=== PATIENT | female | born 1950 | race Caucasian/White ===

== ENCOUNTER 2022-09-26 11:09 | Emergency (ER) | payer MEDICARE, BC, SELFPAY ==
[2022-09-26] VITALS (101 sets, daily range): BP systolic 104–205; BP diastolic 56–101; PULSE 61–78; RESP 7–41; O2SAT 92–100
--- NOTE | 2022-09-26 11:30 | RT.EKG_ITS ---
APPROVED REPORT Exam: Resting ECG Reason for Exam: upper abdominal pain, HTN Patient Location: E HR:71 bpm ECG Measurements Heart Rate 71 AXIS UT 155 P 59 QRSd 98 QRS 29 QT 455 T 61 QTc 496 Conclusion Sinus rhythm...normal P axis, V-rate 60- 99 Probable left atrial enlargement...P >50mS, <-0.10mV V1. Sinus. Normal axis. No STEMI. I have reviewed and interpreted ECG and agree with software generated interpretation.
--- NOTE | 2022-09-26 11:30 | DI.RAD_ITS ---
Exam(s) XR CHEST 2V PA LATERAL EXAM: XR CHEST 2V PA LATERAL CLINICAL HISTORY: upper abdominal pain TECHNIQUE: 2D digital imaging was performed. COMPARISON: CT CT ABDOMEN PELVIS W from 09/26/2022 FINDINGS: HEART: Normal size. Aorta: Not dilated. Calcification at arch. PULMONARY VASCULATURE: Normal. LUNGS: Clear. PLEURAL SPACE: No pleural effusion or pneumothorax. BONE:Scoliosis. IMPRESSION: No acute abnormality. DATA REPOSITORY: RADIATION DOSE DELIVERED:
--- NOTE | 2022-09-26 11:30 | DI.CT_ITS ---
Exam(s) CT ABDOMEN PELVIS W EXAM: CT ABDOMEN PELVIS W CLINICAL HISTORY: LUQ pain. TECHNIQUE: Imaging Protocol: Axial computed tomography images with coronal and sagittal reformatted images were created and reviewed CONTRAST MATERIAL: Intravenous: Omnipaque 350 Contrast volume:100 ml Oral: / no COMPARISON: No exams were available for comparison FINDINGS: ABDOMEN: Lung Bases: Linear scarring or atelectasis. Liver: Normal density. No measurable mass. Gallbladder and biliary tract: Gallbladder distended and shows wall thickening. Question of stones i n gallbladder neck or cystic duct. No intra or extrahepatic biliary dilatation. Pancreas: Normal density, no abnormal calcifications or inflammatory process. Pancreatic ductal dil atation. Spleen: Normal. Kidneys: Normal size, contour and axis. No radiodense stones or obstructive uropathy. No suspicious m asses seen. Adrenal glands: No masses seen. Abdominal Aorta: Abdominal portion non-dilated. Soft tissues: Unremarkable. PELVIS: Bladder: No gross wall thickening. No calculi.No focal mass. Bowel: No obstruction. No bowel wall thickening. Sigmoid diverticulosis. No evidence of diverticu litis. Peritoneal cavity: No ascites, collection or mesenteric inflammatory response. Bones: Mild degenerative changes. Mild scoliosis. Reproductive organs: Status post hysterectomy. Lymph nodes: Unremarkable. Impression: Findings suspicious for acute cholecystitis. Stones are questioned in the gallbladder neck versus cys tic duct. Findings called to Yenny Mendez of the emergency department. RADIATION DOSE DELIVERED: 831.53mGy.cm Total DLP DATA REPOSITORY: All CT scans at this facility are submitted to the National Radiology Data Registry (NRDR) Dose Index Registry (DIR) with the [employer] (ACR). RADIATION OPTIMIZATION: All CT scans at this facility use at least one of these dose optimization te chniques: automated exposure control; mA and/or kV adjustment per patient size (includes targeted exa ms where dose is matched to clinical indication); or iterative reconstruction.
--- NOTE | 2022-09-26 11:46 | ED.GENADUL_ITS ---
Discharge Plan Disposition Patient Disposition: Home Condition: Stable Discharge Details Clinical Impression: Abdominal discomfort, Thickening of wall of gallbladder, Elevated troponin, Hematuria Primary Care Provider: None,None ED Provider: Yenny Mendez Home Meds and New Rx's Prescriptions: New ondansetron 4 mg tablet,disintegrating 4 mg PO DAILY PRN4 Days Qty: 10 0RF Continued lisinopril 10 mg Tablet 10 mg PO DAILY Discharge Instructions Instructions: Ondansetron (By mouth), Abdominal Pain (ED), High Troponin Levels (ED) Additional Instructions: Your imaging was concerning for enlarged gallbladder and thickened gallbladder wall. However, your labs and history and exam do not suggest an acute issue with your gallbladder requiring any type of intervention today. Mother, I will refer you to general surgery. Try to sustain from any high fatty foods. Please monitor your symptoms based on what you are eating and see if there is any types of trends. Your labs are concerning for elevated troponin which is indication of heart strain. However, this was quite minimal and our cardiology team feels that this is not relevant to your presentation today. They also felt the blood pressure was more likely associated discomfort and anxiety around being in the emergency department did not advise any increase in antihypertensives at this time. Please continue to monitor your blood pressure at home when you are able. Please follow-up with your primary care in 1 week for reevaluation. Out of abundance of caution, I will also refer you to outpatient stress testing. You will be contacted regarding appointment time. We will send you home with Zofran in the event you develop any nausea or vomiting. Please take this only as prescribed. Please encourage hydration. You may advance diet as tolerated. If you develop any chest pain, shortness of breath, increased abdominal pain, fever/chills, inability stay hydrated or other new/worsening symptoms please seek care urgently once again. Referrals: Essence Helms [ NON-[facility]FF [facility]YSICIAN] - Discharge Data Discharge Date/Time-TO BE ENTERED AT DEPARTURE: 09/26/22 15:58 Medical Decision Making Patient is a pleasant 72-year-old female with past medical history significant for hypertension and prediabetes. She reports that she began having some left upper quadrant discomfort this morning. States that it can spread more midline and towards the right side. Has been having pain limiting her appetite. Denies any fevers or chills. The surgical history is pertinent for hysterectomy and appendectomy. States that she has had some nausea and dry heaving but no richy vomiting. No recent change in medications. Not listed on her medication list as daily cinnamon. Pain does not radiate to the back. No change in bowel or bladder habits. Denies any vaginal discharge. On exam, patient appears nontoxic. She appears to be resting comfortably. She is hypertensive with a blood pressure 205/101. She does report that she has a history of hypertension but typically not to this degree and states that normally it is well controlled on 10 mg of lisinopril. She does not member if she took her medication this morning. She typically prefers to use minimal amount of medications. Uses cinnamon for other health issues. Lungs are clear. Normal cardiac exam. Exam of the abdomen is significant for tenderness along the left upper quadrant. No palpable enlargement of her aorta no palpable mass. No CVA tenderness. Past medical history significant for hypertension, acid reflux and gastric ulcer which was diagnosed with an EGD several years ago. Pain at this time seems more far to the left and while it has some features that were similar in the past, patient overall reports that the pain is different. She has not not noting any change with p.o. intake although she does report that her appetites been down. Considered pancreatitis, diverticulitis, acid reflux. Also consider potential chest pathology such as aortic aneurysm, dissection, ACS. Patient's not been having any exertional components for hypertension certainly does concern me. Patient is hesitant to use large amount of medications. I did offer her analgesics, antiemetics, anxiety lytics based on her current symptoms which she declines. She is agreeable to IV acetaminophen to help with the discomfort does not want much stronger than this that she does not have any other symptoms. EKG obtained and reviewed by Dr. Edmond. Patient is in a normal sinus rhythm with a heart rate of 71, no acute ischemic events noted. Labs reviewed, concerning for elevatesd troponin. It is only minimally elevated at 68. She has not had any CP, no SOB. This could be demand with the BP or chronic- no previous for comparison. She states that she is very physically active and has not had any change in her exertional capabilities. Will trend and continue to monitor. contacted by radiologist, imaging concerning for GB enlargmenet, wall thickening and possible stone. Will move forward with US. Discussed these findings with the patient. She reports that her pain has migrated more towards the left lower quadrant. Patient's blood pressure came down into the 170s systolic but seems to be fairly labile. Unclear if she took her lisinopril today. Again, the patient prefers to hold off on any significant medical interventions but we will give her another dose of lisinopril as a try to respect the wishes of not a lot of medication but also manage her high blood pressure which may be driving that slight bump in her troponin. Contacted by the radiologist again, she continues to advise that the patient's gallbladder is enlarged with thickening of the wall. Patient had a negative sonographic Cruz sign. Patient continues to feel well. I did contact the radiologist regarding the fact that the patient did have some RBCs in her urine and question if perhaps she had had a kidney stone that may have been noted on the CAT scan initially particularly as her pain seems to be migrating lower into the abdomen. However, radiologist denies seeing any evidence of stone or hydronephrosis. Repeat troponin is pending. Patient remains hemodynamically stable. Resting comfortably although she continues to have some more mild discomfort in the left lower quadrant. Spoke with general sugery. Dr. Grady reviewed imaging, not consistent with acute cholecystitis at this time. They will see her in outpatient clinic. Repeat troponin 65. While slightly down, basically flat. Concerned still with this slight elevation, plan to repeat. Discussed admission with patient adn she would prefer to be home if possible. Consulted with sales operations analyst. Patient continues to deny any chest pain, shortness of breath. She exercises routinely and has not had any exertional symptoms. Dr. Talbot does not feel that this is likely significant troponin. She advised that we do not need to repeat troponin any further, will hold on additional antihypertensives at this time as the patient is uncomfortable in the emergency department have her follow-up with primary care. Out of abundance of caution, I will order an outpatient stress test. I have asked patient to follow-up with her primary care within the next week for reevaluation. We will send her home with Roberto to help with any nausea in case this begins breaking through again but she is tolerating p.o. hydration while here. Strict return precautions discussed. She feels safe going home, has good support adn is able to return with new/worsening symptms. All of her questions and conerns were addressed, they are in agreement with this plan. HPI General Date/Time Provider Initiated Documentation: 09/26/22 11:29 . Limitations to Documentation: no limitations . Information obtained by: patient and RN notes reviewed . History of Present Illness 72 year old F presents to the emergency department with the chief complaint of abdominal pain, described as moderate and similar to prior episodes (has had acid reflux and ulcer in the past which was similar), with intensity rated at 7. Quality is described as aching, and is localized to the abdomen. Patient reports no radiation. Patient started experiencing this hour(s) and it has been constant. No relieving factors improve symptom(s), No exacerbating factors reported . Patient notes loss of appetite and nausea/vomiting (nausea, no vomiting); denies chest pain, cough, fever/chills, headaches, malaise, rash and shortness of breath. Patient did receive the following treatments prior to arrival, none Related Data Home Medications Medication Instructions Recorded Confirmed lisinopril 10 mg tablet 10 mg PO DAILY 09/26/22 09/26/22 ondansetron 4 mg disintegrating 4 mg PO DAILY PRN 4 days #10 tabs 09/26/22 tablet Previous Rx's Medication Instructions Recorded ondansetron 4 mg disintegrating 4 mg PO DAILY PRN 4 days #10 tabs 09/26/22 tablet Allergies Allergy/AdvReac Type Severity Reaction Status Date / Time ciprofloxacin AdvReac Intermediate Agitation Unverified 09/26/22 11:19 General Stated Complaint: Abd Prob MARYCHUY: 3 Review of Systems Constitutional Constitutional: Reports as per HPI, Denies chills, Denies fatigue, Denies fever(s) and Denies headache(s) ENT Ears, Nose, Mouth, and Throat: Denies headache(s) Cardiovascular Cardiovascular: Reports as per HPI, Denies chest pain and Denies dyspnea Respiratory Respiratory: Reports as per HPI, Denies cough and Denies dyspnea Gastrointestinal Gastrointestinal: Reports as per HPI Musculoskeletal Musculoskeletal: Reports as per HPI and Denies back pain Integumentary/Breasts Skin/Breast: Reports as per HPI and Denies rash Neurologic Neurologic: Reports as per HPI and Denies headache(s) Endocrine Endocrine: Denies fatigue PFSH All Active Problems (Updated 09/26/22 @ 15:40 by PHUONG Stiles) Abdominal discomfort (Acute) Thickening of wall of gallbladder (Acute) Elevated troponin (Acute) Hematuria (Acute) Surgical History (Updated 09/26/22 @ 11:21 by Estela Corrales RN) History of appendectomy History of hysterectomy Social History Smoking/Tobacco Use Status: Never Smoking risk assessment performed?: Yes Alcohol Intake: never Drug use: Never Substance use type: does not use Do you feel safe at home: Yes Do you feel safe in your relationship?: Yes Exam Const General: cooperative, healthy appearing, comfortable, no acute distress and well developed Nutritional Appearance: average body habitus and well nourished Orientation: alert and awake [facility] Head: normal to inspection Mouth: moist mucous membranes Resp Effort & Inspection: normal respiratory effort, able to speak in complete sentences and no respiratory distress Auscultation: clear to auscultation bilaterally, no rales, no rhonchi and no wheezes Cardio Rate: regular rate Rhythm: regular rhythm Heart Sounds: S1 normal and S2 normal GI Inspection: normal to inspection Palpation: soft, no hepatosplenomegaly, not firm, no guarding, no masses, no pulsatile masses, not rigid and tender in the epigastrum and in the LUQ Percussion: normal to percussion Auscultation: normal bowel sounds Back/Spine/Pelvis Back: no CVA tenderness Skin General skin exam: no rashes or lesions noted Trauma: no lacerations or abrasions Neuro General: patient alert and patient awake Cognition: normal cognition Speech: speech normal Gait: normal gait Extrem General: capillary refill normal, no pedal edema and no calf tenderness Psych Appearance: grossly normal and well kempt Mental Status: mental status grossly normal Speech and Movement: speech and movement normal Course Vital Signs Vital signs: Vital Signs Pulse 74 09/26/22 11:13 Respiratory Rate 09/26/22 11:13 Blood Pressure 205/101 H 09/26/22 11:13 Pulse Oximetry 99 09/26/22 11:13 Pulse 74 09/26/22 11:13 Respiratory Rate 20 09/26/22 11:13 Respiratory Effort Normal, Non-Labored 09/26/22 11:19 Blood Pressure 205/101 H 09/26/22 11:13 Blood Pressure Position Sitting 09/26/22 11:13 Pulse Oximetry 99 09/26/22 11:13 Oxygen Delivery Method Room Air 09/26/22 11:13 Oxygen Flow Rate 0 09/26/22 11:13 Pain Level 7 09/26/22 11:13
[2022-09-26] MEDS: ACETAMINOPHEN 1,000 MG/100 ML BTL 400 MG IVPB (12:07)
[2022-09-26 12:18] LABS: Bilirubin Negative (Negative); Blood Trace-intact (Negative); Clarity Clear (Clear); Glucose Negative (Negative); Ketones Negative (Negative); Leukocyte Esterase Negative (Negative); Nitrite Negative (Negative); Specific Gravity 1.015 (1.005-1.025); Urobilinogen 0.2 mg/dL (Up to 0.2)
[2022-09-26 12:19] LABS: Abs Immature Grans 0.03 10^3/uL (0.0-0.06); Absolute Basophil Count 0.09 10^3/uL (0.0-0.2); Absolute Monocyte Count 0.45 10^3/uL (0.1-0.8); Absolute Neutrophil Count 7.99 10^3/uL (1.2-6.7); Basophils % 0.9; HCT 45.6 % (36.0-46.0); Immature Grans % 0.3; Lymphocytes % 13.1; MCH 28.6 pg (27.0-33.0); MCHC 32.9 % (32.0-36.0); MCV 87 fL (80-95); MPV 10.4 fL (8.0-11.0); Monocytes % 4.5; Neutrophils % 80.2; Platelet Count 285 10^3/uL (130-400); RBC 5.25 10^6/uL (3.93-5.22); RDW 13.5 % (11.7-14.6); RDW-SD 43.1 fL; WBC 9.96 10^3/uL (4.4-10.8)
[2022-09-26 12:28] LABS: Bacteria Rare HPF (Negative); C & S Indicated? No; Casts Negative LPF (Negative); Crystals Negative HPF (Negative); Epithelial Cells Rare HPF (Negative); Mucus Negative (Negative); Other Cells Negative (Negative); WBC Negative HPF (0-5)
[2022-09-26 12:37] LABS: ALT 23 U/L (14-59); AST 15 U/L (15-37); Albumin 3.9 g/dL (3.4-5.0); Alkaline Phosphatase 82 U/L (46-116); Anion Gap 5.4 mmol/L (3-11); BUN 18 mg/dL (7-18); Bilirubin, Total 0.3 mg/dL (0.2-1.0); CO2 30.6 mmol/L (21.0-32.0); CREATININE 0.9 mg/dL (0.55-1.02); Calcium 9.7 mg/dL (8.5-10.1); Chloride 103 mmol/L (98-107); Estimated GFR 67.08 (mL/min/1.73m2); Glucose 113 mg/dL (74-106); Lipase 51 U/L (16-77); Magnesium 1.9 mg/dL (1.8-2.4); Potassium 3.8 mmol/L (3.5-5.1); Sodium 139 mmol/L (136-145); Total Protein 7.9 g/dL (6.4-8.2)
[2022-09-26 12:40] LABS: Troponin I 68 ng/L (<or=60)
[2022-09-26] MEDS: Omnipaque 350 MG/ML 100 ML BTL IJ (13:21)
[2022-09-26] MEDS: Normal Saline - Diluent 50 ML VIAL IJ (13:22)
--- NOTE | 2022-09-26 13:55 | DI.US_ITS ---
Exam(s) US ABDOMEN LIMITED EXAM: US ABDOMEN LIMITED CLINICAL HISTORY: Evaluate GB, abdominal pain TECHNIQUE: Ultrasound of the gallbladder performed using standard protocol. COMPARISON: No exams were available for comparison FINDINGS: GALLBLADDER: Mild gallbladder distention. Mild wall thickening up to 5 millimeters. Question of sto priscila in the gallbladder neck. No pericholecystic fluid identified. Small focal calcification in the gallbladder wall. WHITTAKER'S SIGN: Negative. BILIARY SYSTEM: No intrahepatic or extrahepatic biliary ductal dilation. IMPRESSION: Mild gallbladder wall thickening. Question of stones in the gallbladder neck. Findings called to Yenny Mendez of the emergency department. DATA REPOSITORY:
[2022-09-26] MEDS: Lisinopril 10 MG TAB PO (14:22)
[2022-09-26 15:03] LABS: Troponin I 65 ng/L (<or=60)
--- NOTE | 2022-09-26 16:56 | NUR.NOTE ---
Nursing Note: Referral faxed to [facility] for enlarged gallbladder and gallbladder wall thickening/in 1 week. Referral given to Care Management for Needs PCP; establish care; high B/P/ in 1 week.
--- NOTE | 2022-09-26 17:38 | NUR.NOTE ---
Nursing Note: PT called questioning her zofran order. Tablets were not given at time of discharge. PHUONG Saldivar called in RX to [facility] in [place] for PT.
--- NOTE | 2022-09-27 15:33 | NUR.NOTE ---
Nursing Note: ETT ordered from ER. Contacted pt to schedule test. Notified that Medicare would not cover test and asked if she had supplemental insurance. Pt said although she has BSBS would decline ETT. Offered to help get new dx from PCP that could be covered by insurance- pt declined. Stated she will f/u with PCP by self and will discuss need for ETT and will get new order sent if PCP thinks she still needs it.
== END 2022-09-26 15:58 | disposition home or self-care (01) ==
PROVIDERS: Emergency Provider Physician Assistant
DX: R10.12 Left upper quadrant pain (principal); R31.9 Hematuria, unspecified; R77.8 Other specified abnormalities of plasma proteins; R93.89 Abnormal findings on diagnostic imaging of other specified body structures
CPT/HCPCS: 36415; 80053; 83690; 93005; 96365; 99285; 71046; 74177; 76705; 81003; 81015; 83735; 84484; 85025; 93010; 99284; J0131; J3490

== ENCOUNTER → 2022-11-16 09:05 | Outpatient (BNVA) | payer MEDICARE, BC, SELFPAY | PROVIDERS: Visit Provider Surgery | DX: K81.9 Cholecystitis, unspecified (principal) | CPT/HCPCS: 99214 ==

== ENCOUNTER 2023-07-03 13:16 | Outpatient (CLI) | payer MEDICARE, BC, SELFPAY ==
--- NOTE | 2023-07-03 13:15 | RT.EKG_ITS ---
APPROVED REPORT Exam: Resting ECG Reason for Exam: HTN Patient Location: O HR:63 bpm ECG Measurements Heart Rate 63 AXIS FL 162 P 31 QRSd 87 QRS 24 QT 495 T 67 QTc 507 Conclusion Sinus rhythm...normal P axis, V-rate 50- 99 Left atrial enlargement...P, P'>60mS, <-0.15mV V1 Otherwise normal ECG
== END 2023-07-03 13:17 | disposition home or self-care (01) ==
LOC: DI.CARD 13:17
PROVIDERS: PCP Internal Medicine; Visit Provider Internal Medicine Cardiovascular Disease
DX: I10 Essential (primary) hypertension (principal)
CPT/HCPCS: 93010

== ENCOUNTER → 2023-07-03 13:36 | Outpatient (BNVA) | payer MEDICARE, BC, SELFPAY | PROVIDERS: PCP Internal Medicine; Referring Provider Internal Medicine; Visit Provider Internal Medicine Cardiovascular Disease | DX: I51.7 Cardiomegaly (principal); I10 Essential (primary) hypertension | CPT/HCPCS: 93005; 99214 ==

== ENCOUNTER → 2023-08-04 13:27 | Outpatient (BNVA) | payer MEDICARE, BC, SELFPAY | PROVIDERS: PCP Internal Medicine; Referring Provider Internal Medicine; Visit Provider Internal Medicine Cardiovascular Disease | DX: I10 Essential (primary) hypertension (principal) | CPT/HCPCS: 99212 ==

== ENCOUNTER → 2023-08-29 11:17 | Outpatient (BNVA) | payer MEDICARE, BC, SELFPAY | PROVIDERS: PCP Internal Medicine; Visit Provider Internal Medicine Cardiovascular Disease | DX: I10 Essential (primary) hypertension (principal) | CPT/HCPCS: 99213 ==

== ENCOUNTER → 2023-11-30 01:29 | Outpatient (CLI) | payer MEDICARE, BC, SELFPAY ==
--- NOTE | 2023-11-30 | ETT_ITS ---
APPROVED REPORT Exam: Exercise Treadmill Patient Location: Out-Patient Room/Bed: Stress Nurse: Essence Silverman RN Ordering Provider:ESSENCE BRO, Contact Number: [phone] BMI: 27.06 Baseline Rhythm: Sinus Rhythm Comment: Rare PAC Indications: SOB, Medical History Medical History: GERD, heart murmur, hyperglycemia, HTN, neuropathy Cardiac Medications: Amlodipine, carvedilol, ondansetron Allergies: Ciprofloxacin Cardiac Risk Factors: HTN, former smoker Previous Cardiac Procedures: None Pretest Chest Pain Characteristics: None Exercise History: Sedentary Physical Disabilities: None Lung Sounds: Clear to auscultation Heart Sounds: Regular Stress Test Details Test: Exercise stress testing was performed using a Tyron protocol. Rest Stress HR Resting HR Supine: 65 bpm Max Heart Rate (APMHR): 145 bpm Resting HR Standin bpm Target HR (85% APMHR): 123 bpm Max HR Achieved: 130 bpm % of APMHR: 90 Recovery HR: 77 bpm HR response to stress: Normal HR response to stress BP Resting BP Supine: 160/80 mmHg Resting BP Standin/70 mmHg Max BP: 210/88 mmHg Recovery BP: 160/70 mmHg BP response to stress: Normal blood pressure response to stress. ECG Resting ECG: Sinus Rhythm Ectopy: Rare PAC Stress ECG: Sinus Tachycardia ST Change: No significant ST segment changes noted Arrhythmia: None Recovery ECG: Sinus Rhythm Recovery ST Change: No significant ST segment changes noted Recovery Arrhythmia: None Clinical Reason for Termination: Fatigue, mod SOB, , Target HR Achieved Stress Symptoms: Fatigue, mod SOB Exercise duration: 03 min58 sec Highest Stage Reached: Stage 2: 2.5 mph at 12% grade. Exercise capacity: 5.80 METs Angina Score: None Laird Treadmill Score: 3.7 Rate Pressure Product: [id number] Stress ECG Conclusion 1. Resting electrocardiogram was normal 2. Patient exercised on the Tyron protocol and completed a workload of 5.8 METS 3. Normal heart rate and blood pressure response to exercise. The patient achieved 90% of predicted heart rate for age. Average exercise capacity for age 4. There was no electrocardiographic evidence of myocardial ischemia 5. There were no significant dysrhythmias Laird Treadmill Score is 3.7 which is Moderate risk. Stress Test Summary STAGE Time (mins) Speed (mph) Grade (%) HR BP SpO2 SYMPTOMS METS Supine 65 160/80 97 Standing 73 150/70 1 3 1.7 10 118 200/90 95 Mod SOB 4.5 2 6 2.5 12 125 96 Mod SOB 7 1 min recovery 109 210/88 Mod SOB 3 min recovery 77 186/80 6 min recovery 77 160/70 96 All symptoms resolved
== END ==
PROVIDERS: PCP Internal Medicine; Visit Provider Internal Medicine
DX: R06.02 Shortness of breath (principal)
CPT/HCPCS: 93016; 93018; 93017

== ENCOUNTER → 2023-12-29 09:09 | Outpatient (BNVA) | payer MEDICARE, BC, SELFPAY | PROVIDERS: PCP Internal Medicine; Visit Provider Internal Medicine Cardiovascular Disease | DX: R06.09 Other forms of dyspnea (principal); I10 Essential (primary) hypertension | CPT/HCPCS: 99213 ==

== ENCOUNTER 2024-12-27 09:14 | Outpatient (CLI) | payer MEDICARE, BC, SELFPAY ==
--- NOTE | 2024-12-27 09:15 | RT.EKG_ITS ---
APPROVED REPORT Exam: Resting ECG Reason for Exam: follow up Patient Location: O HR:60 bpm ECG Measurements Heart Rate 60 AXIS FL 150 P 44 QRSd 94 QRS 18 QT 481 T 71 QTc 481 Conclusion Sinus rhythm...normal P axis, V-rate 50- 99 Probable left atrial enlargement...P >50mS, <-0.10mV V1 Otherwise normal ECG
== END 2024-12-27 09:15 | disposition home or self-care (01) ==
LOC: DI.CARD 09:16
PROVIDERS: PCP Internal Medicine; Visit Provider Internal Medicine Cardiovascular Disease
DX: I49.01 Ventricular fibrillation (principal); I10 Essential (primary) hypertension
CPT/HCPCS: 93010

== ENCOUNTER → 2024-12-27 09:14 | Outpatient (BNVA) | payer MEDICARE, BC, SELFPAY | PROVIDERS: PCP Internal Medicine; Referring Provider Internal Medicine; Visit Provider Internal Medicine Cardiovascular Disease | DX: I10 Essential (primary) hypertension (principal) | CPT/HCPCS: 99213; 93005 ==